=== PATIENT | female | born 1985 | race Asian ===

== ENCOUNTER → 2017-10-21 | Outpatient (CLI) | payer OTHER ==
--- NOTE | 2017-10-21 18:18 | REP ---
Obstetric ultrasound for anatomy: There is a single intrauterine gestation in variable position. heart rate is 150 beats per minute. There is an anterior placenta . The placenta inferior tip of extends into the lower uterine segment. Therefore, I recommend that the the patient return for follow-up endovaginal Doppler ultrasound of the cervix and lower uterine segment to evaluate for vasa previa. There is no abruptio. The cervix is 2.6 cm length. By the ultrasound today gestational age is 20-week 6 days with an DEL of 03/04/2018. By LMP gestational age is 21 weeks 5 days with an DEL of 02/26/2018. weight is 384 grams (0 pounds, 13 ounces). This is the 21st percentile 21 weeks 5 days. The following anatomic structures are identified and are unremarkable: Intracranial lateral ventricles, choroid plexus, cerebellum, cisterna magna, face, facial profile, upper lip, lungs, four-chamber heart, cardiac right ventricular outflow tracts, diaphragm, stomach, cord insertion, three-vessel cord, kidneys, bladder and lower extremities. The spine and upper extremities are suboptimally demonstrated because of position. A followup study dedicated to these structures might be considered. Otherwise, there are no anomalies. Impression: Placenta is anterior extends into the lower uterine segment, therefore, I recommend the patient return for endovaginal Doppler ultrasound to evaluate for vasa previa. The spine is suboptimally demonstrated, consider follow-up ultrasound to evaluate for these structures. Signed by Bakari Lau MD 10/21/2017 06:09 P
== END ==
LOC: M RAD 16:06
PROVIDERS: ATTEND Obstetrics & Gynecology
DX: Z34.82 Encounter for supervision of other normal pregnancy, second trimester (principal)

== ENCOUNTER → 2018-01-10 | Outpatient (CLI) | payer OTHER ==
[2018-01-10 13:57] LABS: GLUCOSE CHALLENGE TEST 1 HOUR 83 MG/DL (LESS THAN 140)
[2018-01-10 14:00] LABS: BASO % 0.2 % (0.0-1.0); EOS # 0.1 10^3/uL (0.0-0.50); EOS % 1.2 % (0.0-3.0); HEMATOCRIT 33.8 % (36.0-47.0); HEMOGLOBIN 11.1 g/dl (12.0-16.0); IMMATURE GRANULOCYTE % 0.6 % (0-3.0); LYMPH # 1.3 10^3/uL (1.5-4.5); LYMPH % 15.4 % (24.0-44.0); MEAN CORPUSCULAR HEMOGLOBIN 29.7 pg (27.0-33.0); MEAN CORPUSCULAR HGB CONC 32.8 g/dl (32.0-36.5); MEAN CORPUSCULAR VOLUME 90.4 fl (80.0-96.0); MONO # 0.6 10^3/uL (0.0-0.8); MONO % 6.4 % (0.0-5.0); NEUTROPHILS # 6.6 10^3/uL (1.8-7.7); NEUTROPHILS % 76.2 % (36.0-66.0); PLATELET COUNT, AUTOMATED 215 10^3/uL (150-450); RED BLOOD COUNT 3.74 10^6/uL (4.00-5.40); RED CELL DISTRIBUTION WIDTH 12.4 % (11.5-14.5); WHITE BLOOD COUNT 8.7 10^3/uL (4.0-10.0)
[2018-01-11 10:18] LABS: RUBELLA IgG QUALITATIVE IMMUNE (IMMUNE)
[2018-01-11 10:35] LABS: HBsAg Prenatal NEGATIVE (NEGATIVE)
[2018-01-11 10:49] LABS: HIV 1&2 SCREEN CENTAUR NEGATIVE (NEGATIVE)
[2018-01-12 15:51] LABS: CHLAMYDIA DNA AMPLIFICATION NEGATIVE (NEGATIVE); GC DNA AMPLIFICATION NEGATIVE (NEGATIVE)
== END ==
LOC: M LAB 11:38
DX: Z34.82 Encounter for supervision of other normal pregnancy, second trimester (principal)
CPT/HCPCS: 82950

== ENCOUNTER → 2018-01-13 | Outpatient (CLI) | payer OTHER | LOC: M RAD 11:52 | DX: Z34.82 Encounter for supervision of other normal pregnancy, second trimester (principal) ==

== ENCOUNTER → 2018-01-26 | Outpatient (REF) | payer OTHER | LOC: M LAB REF 17:09 | DX: Z34.83 Encounter for supervision of other normal pregnancy, third trimester (principal) | CPT/HCPCS: 87081 ==

== ENCOUNTER 2018-03-05 01:00 | Inpatient (IN) | payer OTHER ==
[2018-03-05] MEDS ORDERED: LR 1,000 ML IV (01:38)
[2018-03-05] MEDS: LACTATED RINGER'S 1000 ML IV (01:38)
[2018-03-05 01:53] LABS: HEMATOCRIT 31.7 % (36.0-47.0); HEMOGLOBIN 10.6 g/dl (12.0-15.5); MEAN CORPUSCULAR HEMOGLOBIN 29.3 pg (27.0-33.0); MEAN CORPUSCULAR HGB CONC 33.4 g/dl (32.0-36.5); MEAN CORPUSCULAR VOLUME 87.6 fl (80.0-96.0); PLATELET COUNT, AUTOMATED 250 10^3/uL (150-450); RED BLOOD COUNT 3.62 10^6/uL (4.00-5.40); RED CELL DISTRIBUTION WIDTH 12.6 % (11.5-14.5); WHITE BLOOD COUNT 9.5 10^3/uL (4.0-10.0)
[2018-03-05] MEDS ORDERED: OXYTOCIN 30 UNITS IN 0.9% NaCl 500ML IV BAG (J2590) As Ordered (03:41)
[2018-03-05] MEDS: OXYTOCIN DRIP 30 UNITS in APPROPRIATE DILUENT 1 EA IV (05:52)
[2018-03-05] MEDS ORDERED: ANUSOL HC CREAM 30GM TOP (06:00)
[2018-03-05] MEDS ORDERED: DOCUSATE SODIUM 100 MG CAP PO (06:00)
[2018-03-05] MEDS ORDERED: ACETAMINOPHEN 500 MG TAB PO (06:00)
[2018-03-05] MEDS ORDERED: DIBUCAINE 1% OINTMENT 30GM TOP (06:00)
[2018-03-05] MEDS ORDERED: METHYLERGONOVINE MALEATE 0.2 MG TAB PO (06:00)
[2018-03-05] MEDS: RHOGAM 300 MCG (1500 IU) INJ (J2790) IM (08:53)
[2018-03-05] MEDS: MEASLES,MUMPS,RUBELLA VACCINE INJ (MMR-II) (90707) SC (08:53)
[2018-03-05] MEDS: PRENATAL VITAMINS CHEWABLE TABLET PO (15:15)
[2018-03-05] MEDS: IBUPROFEN 800 MG TAB PO (15:15)
[2018-03-06] MEDS: PRENATAL VITAMINS CHEWABLE TABLET PO (07:58)
[2018-03-06] MEDS: IBUPROFEN 800 MG TAB PO (10:40)
== END 2018-03-06 12:30 | disposition home or self-care (01) | DRG 767 ==
LOC: M LDO 01:00 → M LDI 01:38 → M OBS 07:45
PROVIDERS: Obstetrics & Gynecology
PROC: 10D17Z9 Manual Extraction of Products of Conception, Retained, Via Natural or Artificial Opening (ICD-10-PCS; principal; 2018-03-05)
PROC: 10E0XZZ Delivery of Products of Conception, External Approach (ICD-10-PCS; 2018-03-05)
DX: O48.0 Post-term pregnancy (principal); Z37.0 Single live birth; O72.2 Delayed and secondary postpartum hemorrhage; Z3A.41 41 weeks gestation of pregnancy

== ENCOUNTER 2018-06-19 16:37 | Emergency (ER) | payer OTHER | END 2018-06-19 19:39 | disposition left against medical advice (07) | LOC: M ED 16:37 | DX: R51 Headache (principal); Z53.21 Procedure and treatment not carried out due to patient leaving prior to being seen by health care provider ==